=== PATIENT | male | born 2000 | race Two or more races ===

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

== ENCOUNTER → 2020-03-26 | Outpatient (CLI) | payer BC, OTHER ==
[2020-03-26 12:43] LABS: CHLAM PCR DETECTED (NOT DETECT)
== END ==
LOC: OD 10:06
PROVIDERS: ATTEND Pediatrics
DX: N34.2 Other urethritis (principal)
CPT/HCPCS: 36415; 86592; 86701; 87070; 87205; 87491; 87591